=== PATIENT | male | born 1960 | race Caucasian/White ===

== ENCOUNTER 2022-06-20 16:32 | Inpatient (IN) | payer SELFPAY ==
[~2022-06-20] VITALS: Ht 180.3 cm; Wt 74.8 kg
--- NOTE | 2022-06-20 17:00 | NUR ---
[id number] FROM [place] C/O R FOOT CELLULITIS. RECENTLY D/C'D FROM ANOTHER HOSPITAL AND LOST HIS PRESCRIPTION.
[2022-06-20] MEDS ORDERED: PIPERACILLIN /TAZOBACTAM 3.375 G in IV D5W 50 ML IV ONE (17:30)
[2022-06-20] MEDS ORDERED: VANCOMYCIN 1 GM in IV D5W 250 ML IV ONE (17:30)
--- NOTE | 2022-06-20 17:45 | NUR ---
BLOOD DRAWN AND SENT TO LAB
--- NOTE | 2022-06-20 17:45 | NUR ---
EXCHANGE CLERK AT BEDSIDE
[2022-06-20 18:04] LABS: BASOPHILS % (AUTO) 0.3 % (0.0-2.0); HEMATOCRIT 34 % (39-51); HEMOGLOBIN 11.2 g/dL (13.5-17.5); LYMPHOCYTES # (AUTO) 0.7 K/uL (0.8-4.8); LYMPHOCYTES % (AUTO) 9.3 % (20.0-44.0); MEAN CORPUSCULAR HGB CONC 33 g/dl (31.0-36.0); MEAN CORPUSCULAR VOLUME 82 fL (80-96); MONOCYTES # (AUTO) 0.4 K/uL (0.1-1.30); NEUTROPHILS # (AUTO) 6.1 K/uL (1.8-8.9); NEUTROPHILS % (AUTO) 85.4 % (43.0-81.0); PLATELET COUNT (AUTO) 309 K/uL (150-450); RED BLOOD CELL COUNT(AUTO) 4.19 MIL/uL (4.5-6.0); WHITE BLOOD COUNT (AUTO) 7.2 K/uL (4.3-11.0)
[2022-06-20] MEDS ORDERED: VANCOMYCIN 1 GM VIAL ONE (18:05)
[2022-06-20] MEDS ORDERED: PIPERACILLIN /TAZOBACTAM 3.375 G VIAL IV ONE (18:05)
[2022-06-20 18:13] LABS: CALCIUM, SERUM 8.1 mg/dL (8.5-10.1); CREATININE 1.4 mg/dL (0.6-1.3); POTASSIUM 4.4 mmol/L (3.5-5.1)
[2022-06-20 18:17] LABS: C-REACTIVE PROTEIN 33.7 mg/dL (0.0-0.9)
--- NOTE | 2022-06-20 19:04 | NUR ---
SWAB FOR COVID19 SENT TO LAB
[2022-06-20] MEDS ORDERED: TEMAZEPAM 15 MG CAPSULE PO PRN (20:00)
[2022-06-20] MEDS ORDERED: ACETAMINOPHEN 325 MG TABLET PO PRN (20:00)
[2022-06-20] MEDS ORDERED: MAGNESIUM HYDROXIDE 30 ML UDC PO PRN (20:00)
[2022-06-20] MEDS ORDERED: ONDANSETRON HCL/PF 4 MG/2 ML VIAL IVP PRN (20:00)
[2022-06-20] MEDS ORDERED: Z GUARD REMEDY 4 OZ OINT TP PRN (20:00)
[2022-06-20] MEDS ORDERED: DEXTROSE 50%-WATER 50 ML DISP.SYRIN IV PRN (20:00)
[2022-06-20] MEDS ORDERED: IV NS 0.9% 1,000 ML IV ONE (20:00)
[2022-06-20] MEDS ORDERED: HYDROCODONE/APAP 5/325MG TABLET PO PRN (20:00)
[2022-06-20] MEDS ORDERED: MAG HYDROX/AL HYDROX/SIMETH 30 ML UDC PO PRN (20:00)
--- NOTE | 2022-06-20 20:55 | NUR ---
ROOM 315-2
[2022-06-20] MEDS: ENOXAPARIN SODIUM 40 MG/0.4 ML DISP.SYRIN SQ SCH (21:00)
--- NOTE | 2022-06-20 21:06 | NUR ---
REPORT GIVEN TO ALEX HERR ROOM 315-2 FOR MARC
[2022-06-20] MEDS: BLOOD SUGAR DIAGNOSTIC 1 EACH STRIP IN SCH (22:00)
[2022-06-20] MEDS ORDERED: CEFEPIME 1 GM VIAL ONE (22:35)
[2022-06-20] MEDS: CEFEPIME 1 GM in IV D5W 50 ML IV SCH (22:51)
[2022-06-21] MEDS: IV NS 0.9% 1,000 ML IV PRN ×2 (02:57→16:17)
[2022-06-21] MEDS ORDERED: VANCOMYCIN 1 GM VIAL ONE (04:42)
[2022-06-21] MEDS: VANCOMYCIN 0.75 GM in IV D5W 250 ML IV SCH ×2 (05:01→18:37)
[2022-06-21] MEDS: CEFEPIME 1 GM in IV D5W 50 ML IV SCH (06:39)
[2022-06-21] MEDS: BLOOD SUGAR DIAGNOSTIC 1 EACH STRIP IN SCH ×4 (06:48→21:25)
[2022-06-21] MEDS: INSULIN REGULAR, HUMAN 100 UNIT/ML 3 ML VIAL SQ PRN ×3 (06:49→17:46)
--- NOTE | 2022-06-21 07:36 | NUR ---
noc rn closing needs attended. report given to NEMESIO Casiano for continuity of patient care.
--- NOTE | 2022-06-21 07:40 | NUR ---
RN OPENING NOTE PATIENT AWAKE IN BED RESTING AT THE MOMENT A/O X 4. NO S/S OF PAIN NOTED AT THIS TIME. ON ROOM AIR, NO DISTRESS OR SHORTNESS OF BREATH NOTED. IV ACCESS L HAND #20G, INTACT, PATENT AND FLUSHING WELL. FALL AND SAFETY MEASURES IN PLACE, BED ALARM ON, BED IN LOW AND LOCK POSITION, CALL LIGHT AND TABLE WITHIN EASY REACH, SIDE RAILS UP X2. WILL CONTINUE TO MONITOR.
--- NOTE | 2022-06-21 07:58 | NUR ---
WOUND CARE CONSULT: PT PRESENTS VERY THIN AND BONY WITH DIABETIC FOOT ULCERS, PRESENT ON ADMISSION. DR LUCAS CALLED FOR DPM CONSULT. IN AGREEMENT WITH PLAN OF CARE.
[2022-06-21 08:00] VITALS: BP 141/81
[2022-06-21] MEDS ORDERED: INSULIN (08:23)
[2022-06-21] MEDS ORDERED: [UNRECOGNIZED DRUG - OTHER] (08:23)
[2022-06-21] MEDS ORDERED: QUET100T PO (08:23)
[2022-06-21] MEDS ORDERED: HYDR-3980 PO (08:23)
[2022-06-21] MEDS: PANTOPRAZOLE 40 MG TABLET.DR PO SCH (08:31)
[2022-06-21] MEDS: HYDROCODONE/APAP 10/325MG TABLET PO PRN ×2 (11:25→16:31)
[2022-06-21 11:32] LABS: BASOPHILS % (AUTO) 0.1 % (0.0-2.0); EOSINOPHILS % (AUTO) 0.1 % (0.0-6.0); HEMATOCRIT 31 % (39-51); LYMPHOCYTES # (AUTO) 0.8 K/uL (0.8-4.8); LYMPHOCYTES % (AUTO) 12.4 % (20.0-44.0); MEAN CORPUSCULAR HGB CONC 32 g/dl (31.0-36.0); MEAN CORPUSCULAR VOLUME 81 fL (80-96); MONOCYTES # (AUTO) 0.3 K/uL (0.1-1.30); MONOCYTES % (AUTO) 5.4 % (2.0-12.0); NEUTROPHILS # (AUTO) 5.2 K/uL (1.8-8.9); PLATELET COUNT (AUTO) 292 K/uL (150-450); RED BLOOD CELL COUNT(AUTO) 3.81 MIL/uL (4.5-6.0); WHITE BLOOD COUNT (AUTO) 6.3 K/uL (4.3-11.0)
[2022-06-21 11:45] LABS: CALCIUM, SERUM 8.1 mg/dL (8.5-10.1); CREATININE 1.1 mg/dL (0.6-1.3); MAGNESIUM 1.8 mg/dL (1.8-2.4); PHOSPHORUS 2.1 mg/dL (2.5-4.9); POTASSIUM 3.9 mmol/L (3.5-5.1)
[2022-06-21 12:01] LABS: THYROID STIMULATING HORMONE 0.604 uIU/mL (0.358-3.74)
--- NOTE | 2022-06-21 13:48 | NUR ---
"SW Consult: SW consult requested for patient possible homelessness. Patient was brought in due to cellulitis. Patient presents alert and oriented x2 (place,self). Patient appeared disorganized and confused. Patient was in his bed with the blanket covered on top of his face. SW politely asked pt to remove the blank. As SW, was conducting the assessment pt's speech appeared unclear. Pt stated that he has been experiencing homelessness, however, he reported that he currently resides at [address] [place], [place] [id number] in an apartment. He did not want to share further information about his living condition. He reported that he has no supportive family at this time. He was born and raised in [place] and has no family. He reported that his parents are . Pt shared that he is currently on SSI and received about $900.00 dollars. SW assessed for suicidal or homicidal, pt denied. SW assessed any hallucinations visual/auditory, pt denied. SW assessed for substance abuse and pt expressed that he smokes cigarettes and denies any use of drugs/alcohol. SW offered pt resources and pt was accepting of shelters and substance abuse referrals. DC PLAN: Patient reported that he currently resides at [facility] [place] [id number] in an apartment and wants to return back. However, SW gave pt homeless Longterm resources and homeless waiver was placed in the chart. Substance Abuse resources provided included: [facility] Substance Abuse Self-Helpline ([facility]) ; [facility] [address] [facility] [id number] ; [facility] [address] [facility] [address] ; [facility] [address] [facility] [address] ; [facility] [address] [facility] [phone] ; [facility] [address] [facility] [address] ; [facility] [address] [facility] [phone] ; [facility] Substance Abuse Helpline([facility] ; [facility] ; [facility] [place]; [facility]; [facility] [place]; [facility] [place]; [facility]; [facility]; [facility]; [facility], [facility]. [place]; Alcoholics Anonymous -[facility]V; Dz[facility]Go[facility]Czdql[facility] ; Marijuana Anonymous -[facility]; Narcotics Anonymous www.na.org; Shelters: [place] Ashley [place]t Provider: [place] [facility] [place] Address: [address] [place] [address] [place], [address] # of Beds: 47 Population Served: [facility] 6 | [facility] Provider: [facility] Address: [address], [address] # of Beds: 66 Population Served: [facility] Fishidy [place] Provider: [facility] Address: [address] [facility], [address] # of Beds: 56 Population Served: [facility] [place] Provider: SSRamona/[facility]. [facility] Address: [address] [facility], [address] # of Beds: 49 Population Served: [facility] 8 | [facility] Provider: [facility] Address: [address] [facility], [address] # of Beds: 37 Population Served: [place] Hygiene: [facility] [address] Stefan Foley ; [facility] [address] [facility] ; [facility] [address], [place] . Food Resources: [facility]- [address]. [place]; Meet Each Need with Dignity ([facility]) [address] [place] [address] [place]; [facility] [address] [facility]; [facility] 0667 [facility]. Mental Health resources provided: [facility] [address] [place], [place] [phone] ; [facility], [facility]. [address] [facility] [address], [place] [address] ; [facility] [address] [facility], [place] [phone] ; [facility] [place], [place] [phone] Healthcare Clinics: [facility] [address] [facility], [address] [place]. [place] ; [facility] [address] [facility] [address] [place] [address]; [facility] [address] [facility]. [place] [phone]"
[2022-06-21] MEDS ORDERED: K PHOS NEUTRAL 250 MG TABLET PO ONE (16:00)
[2022-06-21] MEDS: CEFEPIME 2 GM in IV D5W 100 ML IV SCH (16:16)
--- NOTE | 2022-06-21 19:26 | NUR ---
RN CLOSING NOTE PATIENT AWAKE IN BED RESTING AT THE MOMENT A/O X 4. NO S/S OF PAIN NOTED AT THIS TIME. ON ROOM AIR, NO DISTRESS OR SHORTNESS OF BREATH NOTED. IV ACCESS L HAND #20G, INTACT, PATENT AND FLUSHING WELL. SCHEDULE MEDICATIONS ADMINISTERED. FALL AND SAFETY MEASURES IN PLACE, BED ALARM ON, BED IN LOW AND LOCK POSITION, CALL LIGHT AND TABLE WITHIN EASY REACH, SIDE RAILS UP X2. WILL ENDORSE TO SUPERVISOR WELDING EQUIPMENT REPAIRER.
--- NOTE | 2022-06-21 19:30 | NUR ---
RN OPENING NOTE PATIENT IN BED, EYES CLOSED, EASILY AWAKENED. PATIENT IS A/O X 2-3 AT THIS TIME. ABLE TO MAKE NEEDS KNOWN. PATIENT IS ON RA, TOLERATING WELL, BREATHING EVEN AND UNLABORED, 02 SAT AT 97%. PATIENT HAS A L HAND 20G WITH NS ONGOING AT 75 ML/HR, INFUSING WELL. PATIENT DOES NOT REPORT ANY PAIN AT THIS TIME. PATIENT NOT IN ANY APPARENT DISTRESS. SAFETY MEASURES IN PLACE: BED LOCKED AND IN LOWEST POSITION, CALL LIGHT WITHIN REACH, SIDE RAILS UP. WILL MONITOR PATIENT CLOSELY.
[2022-06-21 20:00] VITALS: BP 145/77
[2022-06-21] MEDS: ENOXAPARIN SODIUM 40 MG/0.4 ML DISP.SYRIN SQ SCH (21:19)
--- NOTE | 2022-06-22 01:45 | NUR ---
RN NOTE WAS ABLE TO CONVINCE PATIENT TO REMOVE DIRTY CLOTHES AND BE GIVEN A BED BATH. AFTER THE BED BATH, THIS RN AND ARACELI GAGNON WAS PUTTING NEW LINENS ON, PATIENT SUDDENLY GOT MAD BECAUSE WE WERE PUTTING THE LINENS ON WHILE HE WAS ON THE BED, GOT UP, STARTED CURSING AT US AND SAYING WE'RE NOT DOING IT FAST ENOUGH. AND KEPT YELLING AND CURSING AT STAFF UNTIL HE WENT BACK TO BED AND SAID JUST WANTED TO GO BACK TO SLEEP. REFUSED TO BE HOOKED BACK ONTO THE IVF. RISK AND BENEFITS EDUCATION GIVEN, PATIENT STILL REFUSED.
[2022-06-22] MEDS: CEFEPIME 2 GM in IV D5W 100 ML IV SCH (04:00)
--- NOTE | 2022-06-22 04:21 | NUR ---
PATIENT REFUSED MAXIPIME IV. EDUCATION GIVEN REGARDING PURPOSE OF THE ANTIBIOTIC BUT PATIENT YELLING "NO! IM GETTING SOME SLEEP!"
[2022-06-22] MEDS: VANCOMYCIN 0.75 GM in IV D5W 250 ML IV SCH (06:00)
[2022-06-22 06:21] LABS: BASOPHILS % (AUTO) 0.2 % (0.0-2.0); EOSINOPHILS % (AUTO) 0.8 % (0.0-6.0); HEMATOCRIT 29 % (39-51); HEMOGLOBIN 9.5 g/dL (13.5-17.5); LYMPHOCYTES # (AUTO) 1.2 K/uL (0.8-4.8); LYMPHOCYTES % (AUTO) 19.8 % (20.0-44.0); MEAN CORPUSCULAR HGB CONC 33 g/dl (31.0-36.0); MEAN CORPUSCULAR VOLUME 82 fL (80-96); MONOCYTES # (AUTO) 0.4 K/uL (0.1-1.30); MONOCYTES % (AUTO) 6.1 % (2.0-12.0); NEUTROPHILS # (AUTO) 4.6 K/uL (1.8-8.9); NEUTROPHILS % (AUTO) 73.1 % (43.0-81.0); PLATELET COUNT (AUTO) 256 K/uL (150-450); RED BLOOD CELL COUNT(AUTO) 3.52 MIL/uL (4.5-6.0); WHITE BLOOD COUNT (AUTO) 6.2 K/uL (4.3-11.0)
[2022-06-22 06:37] LABS: CALCIUM, SERUM 7.8 mg/dL (8.5-10.1); CREATININE 0.9 mg/dL (0.6-1.3); MAGNESIUM 1.6 mg/dL (1.8-2.4); PHOSPHORUS 1.8 mg/dL (2.5-4.9); POTASSIUM 3.7 mmol/L (3.5-5.1)
--- NOTE | 2022-06-22 07:25 | NUR ---
RN CLOSING NOTE PATIENT NOT IN ANY APPARENT DISTRESS. PATIENT DID NOT AGREE TO RECEIVING HIS VANCOMYCIN IV DOSE OR HIS BLOOD SUGAR CHECK. PER PATIENT, WE CANT TAKE HIS BLOOD SUGAR RIGHT BEFORE BREAKFAST IS SERVED. EDUCATION REGARDING MEDICATIONS GIVEN, STILL REFUSES. L HAND IV ACCESS STILL IN PLACE, PATENT AND INTACT. ON RA, NO SOB NOTED. SAFETY MEASURES IMPLEMENTED. ALL NEEDS MET AND ATTENDED. ENDORSED TO DAY SHIFT NURSE FOR MARC.
[2022-06-22] MEDS: PANTOPRAZOLE 40 MG TABLET.DR PO SCH (07:30)
[2022-06-22] MEDS: BLOOD SUGAR DIAGNOSTIC 1 EACH STRIP IN SCH ×3 (07:30→16:49)
--- NOTE | 2022-06-22 07:43 | NUR ---
MS RN OPENING NOTE PATIENT ASLEEP IN BED, EASILY AROUABLE. A/O X 4. NO S/S OF PAIN NOTED AT THIS TIME. ON ROOM AIR, NO DISTRESS OR SHORTNESS OF BREATH NOTED. IV ACCESS L HAND #20G, INTACT, PATENT AND FLUSHING WELL. FALL AND SAFETY MEASURES IN PLACE, BED ALARM ON, BED IN LOW AND LOCK POSITION, CALL LIGHT AND TABLE WITHIN EASY REACH, SIDE RAILS UP X2. WILL CONTINUE TO MONITOR.
--- NOTE | 2022-06-22 08:17 | NUR ---
RN NOTE- PT OPPOSITIONAL, PROFANE AND ANTAGONISTIC. REFUSING ACCU CHECK, CARE AND INTERACTION.
[2022-06-22] MEDS ORDERED: VANCOMYCIN 1 GM in IV D5W 250ml IV SCH (10:00)
[2022-06-22] MEDS: Magnesium 1GM/D5W 100ML PREMIX 100 ML IV SCH ×2 (10:39→12:33)
[2022-06-22] MEDS ORDERED: NEUTRA PHOS 1 POWD.PACKET PO ONE (11:00)
[2022-06-22] MEDS: INSULIN REGULAR, HUMAN 100 UNIT/ML 3 ML VIAL SQ PRN ×2 (12:04→16:51)
[2022-06-22] MEDS: HYDROCODONE/APAP 10/325MG TABLET PO PRN ×2 (12:33→16:58)
[2022-06-22] MEDS ORDERED: AMOX/CLAVULANATE 875 MG TABLET PO SCH (14:30)
[2022-06-22] MEDS ORDERED: DOXYCYCLINE HYCLATE (100 MG) 100 MG TABLET PO SCH (14:30)
[2022-06-22] MEDS ORDERED: METF-442 PO (15:40)
[2022-06-22] MEDS ORDERED: DOXY100T2 PO (15:40)
[2022-06-22] MEDS ORDERED: AMOX1TAB16 PO (15:40)
[2022-06-22] MEDS ORDERED: INSU100I30 SQ (15:40)
[2022-06-22 16:00] VITALS: BP 118/68
[2022-06-22] MEDS ORDERED: HYDR-3972 PO (17:27)
--- NOTE | 2022-06-22 18:56 | NUR ---
RN NOTE- PT DC AT THIS TIME VIA [facility] TO HOME IN [place]. MEDICALLY CLEARED FOR DC, REFUSED PHOTOS OF FOOT WOUND.,, DRESSING CHANGED EARLIER IN SHIFT. ID [id number] REMOVED, IV REMOVED, ESCORTED OFF UNIT TO [facility].
== END 2022-06-23 00:20 | disposition home or self-care (01) | DRG 919 ==
LOC: ER 16:35 → MED 20:58
PROVIDERS: ADMIT Nurse Practitioner Acute Care; ATTEND Nurse Practitioner Acute Care
DX: T81.30XA Disruption of wound, unspecified, initial encounter (principal); J15.9 Unspecified bacterial pneumonia; N17.0 Acute kidney failure with tubular necrosis; E87.1 Hypo-osmolality and hyponatremia; E11.628 Type 2 diabetes mellitus with other skin complications; Z20.822 Contact with and (suspected) exposure to COVID-19; Z89.421 Acquired absence of other right toe(s); Z59.00 Homelessness unspecified; E11.621 Type 2 diabetes mellitus with foot ulcer; L97.519 Non-pressure chronic ulcer of other part of right foot with unspecified severity; E11.65 Type 2 diabetes mellitus with hyperglycemia; E86.1 Hypovolemia; Z87.891 Personal history of nicotine dependence; E11.42 Type 2 diabetes mellitus with diabetic polyneuropathy; E83.39 Other disorders of phosphorus metabolism; E83.42 Hypomagnesemia; Y83.8 Other surgical procedures as the cause of abnormal reaction of the patient, or of later complication, without mention of misadventure at the time of the procedure; Y92.009 Unspecified place in unspecified non-institutional (private) residence as the place of occurrence of the external cause
CPT/HCPCS: 36415; 71045-TC; 73630-TC; 76770-TC; 80048-TC; 80202-TC; 82962-TC; 83735-TC; 84100-TC; 84443-TC; 85025-TC; 85652-TC; 86140-TC; 87040-TC; 87081-TC; A6403; C9803; G0378; J0692; J1650; J1815; J2543; J3370; J3475; J7030; J7060